=== PATIENT | male | born 1940 | race Caucasian/White ===

== ENCOUNTER 2016-09-01 18:43 | Inpatient (IN) | payer OTHER ==
--- NOTE | ~2016-09-01 | DS ---
Discharge Summary [facility] [address]. [address] NAME: SUSANNA LEON : 42 STATUS : DIS IN PAT#: [id number] AGE: 76 ADM/REG DATE : 09/02/16 MR#: [id number] REPORT SERV DATE: 09/05/16 DICTATED BY: SARKIS ZHAO DATE: 09/04/16 REPORT STATUS : Draft TRANSCRIBED BY: MODL DATE: 09/04/16 ADMISSION DATE: 09/02/2016 DISCHARGE DATE: 09/04/2016 DISCHARGE DIAGNOSES: 1. Nausea and vomiting related. 2. Pancreatic cancer with liver mets. 3. Hyponatremia. 4. Benign prostatic hyperplasia. 5. Increased liver function tests secondary to #2. IMAGING: CT of abdomen and pelvis, 09/01/2016, impression, obstructing appearing enhancing mass within the proximal biliary limb in the post Whipple procedure patient. The proximal biliary limb is dilated up to 4.9 cm diameter. Multifocal liver metastasis, left and right lobe liver largest 4.2 cm diameter near the liver dome, left lobe. Retroperitoneal adenopathy measuring up to 11 mm diameter suspicious for metastatic amanda disease. CONSULTATIONS: Surgery, Dr. Allen, 09/02/2016. COURSE DURING HOSPITAL STAY: Please refer to history and physical dictated by Dr. Vazquez on 09/01/2016 for complete admission details as well as consultation note by Dr. Allen. This patient is a 76-year-old male who presented to [facility] Emergency Room with complaints of nausea, ongoing. He does present with a history of pancreatic cancer under the care of Dr. Erik Larson, [facility]. The patient has undergone a Whipple in [place]. The patient presented with complaints of nausea and vomiting, uncontrolled at home. Imaging was obtained which is noted above. Surgical consult was obtained. The patient was evaluated by Dr. Allen on 09/02/2016. Per Dr. Allen and Dr. Larson, the patient was informed that the metastatic pancreatic cancer was incurable. No further surgical intervention or chemotherapy at this time. We discussed with the patient plan of care. The patient did agree that Hospice was the best choice. The patient chose [facility], was seen and evaluated. The patient will be admitted to hospice today on 09/04/2016. DISCHARGE MEDICATIONS: Per [facility]. This discharge took less than 30 minutes. ANASTASIA/LAURENT Sarkis Zhao NP / [id number] Discharge Summary [address] [address] NAME: SUSANNA LEON : 42 STATUS : DIS IN PAT#: [id number] AGE: 76 ADM/REG DATE : 09/02/16 MR#: [id number] REPORT SERV DATE: 09/05/16 DICTATED BY: SARKIS ZHAO DATE: 09/04/16 REPORT STATUS : Draft TRANSCRIBED BY: LAURENT DATE: 09/04/16 CC: MD Jarrett Bell M.D.
--- NOTE | ~2016-09-01 | HP ---
History And Physical [place] [address] [facility] [place]. [address] NAME: SUSANNA LEON : 42 STATUS : REG ER PAT#: [id number] AGE: 76 ADM/REG DATE : 09/01/16 MR#: [id number] REPORT SERV DATE: 09/01/16 DICTATED BY: JEFF HODGE DATE: 09/01/16 REPORT STATUS : Draft TRANSCRIBED BY: MODL DATE: 09/01/16 DATE OF ADMISSION: 09/01/2016 CHIEF COMPLAINT: Nausea. HISTORY OF PRESENT ILLNESS: The patient is a 76-year-old male. He has a past medical history significant for pancreatic cancer. The patient was diagnosed approximately a year ago here. He went to [place] for treatment and underwent a Whipple procedure. He normally follows up with Oncology and had a nine-month followup scan in July, I do not have access to that scan tonight, but apparently, it was noted that he had tumor recurrence and some lesions in his liver. Oncology recommendations at that time were for no further chemo. The patient states he was doing well until approximately two weeks ago, where he just felt like all his strength and energy had left him. Apparently, he got some outpatient IV fluids, which helped a little, but when he was still experiencing decreasing symptoms, he presented to the emergency department here this evening. He is having very minimal pain. He just has weakness, fatigue, decreased appetite, and just abruptly starting in the emergency department the nausea. On evaluation here, he was noted to have some mild hyponatremia at 128. There is some mild elevation in his AST of 61. He is being admitted for IV fluids, electrolyte correction, control of his pain and nausea, and further recommendations from Oncology and Surgery. PAST MEDICAL HISTORY: He states is otherwise remarkable for some urinary problems. PAST SURGICAL HISTORY: He has had the Whipple. He had a cystic neuroma removed in 1993. CURRENT MEDICATIONS: Prilosec 40, alfuzosin 10, and tramadol 50. ALLERGIES: OFLOXACIN. FAMILY HISTORY: Mother is living. Father from an [place]. SOCIAL HISTORY: Nondrinker, nonsmoker. REVIEW OF SYSTEMS: HEENT: Currently, no headache. CARDIOVASCULAR: No chest pain, palpitations. PULMONARY: No shortness of breath. GI: He has had some emesis, but now mostly dry heaves. : No complaints. NEUROMUSCULOSKELETAL: Complains only of generalized weakness. Otherwise, 10-point review of systems is negative. PHYSICAL EXAMINATION: VITAL SIGNS: BP 108/64, pulse 83, temperature 98, respirations 18, saturation 97%. GENERAL: He is awake, oriented, in no acute distress. He does appear nauseous. HEENT: Normocephalic, atraumatic. Sclerae nonicteric. History And Physical [address] [address] NAME: SUSANNA LEON : 42 STATUS : REG ER PAT#: [id number] AGE: 76 ADM/REG DATE : 09/01/16 MR#: [id number] REPORT SERV DATE: 09/01/16 DICTATED BY: JEFF HODGE DATE: 09/01/16 REPORT STATUS : Draft TRANSCRIBED BY: LAURENT DATE: 09/01/16 NECK: Supple. HEART: Regular rate and rhythm. LUNGS: Clear to auscultation without rhonchi, rales, or wheezes. ABDOMEN: He does have bowel sounds present. No distention. No tenderness. EXTREMITIES: No clubbing, cyanosis, or edema. LABORATORY DATA: Sodium 128, potassium 3.9, chloride 93, CO2 of 23, BUN and creatinine of 8 and 0.5 with glucose of 127, albumin is 2.7, calcium is 8.2, alkaline phosphatase 491, AST and ALT are 61 and 50. Lipase is 139, BNP is 94.5, troponin is less than 0.02, lactate is 0.7. White count 8.5, H and H 11 and 30.8, platelets 405. Urinalysis is pending. CT shows obstructing mass, proximal biliary limb of the Whipple, 4.9 cm dilatation, liver mets and retroperitoneal adenopathy. ASSESSMENT: Probable recurrent pancreatic cancer with mild electrolyte abnormalities and severe nausea and vomiting. PLAN: 1. The patient has been admitted. 2. IV fluids. 3. Antiemetics. 4. Reasonable pain control. 5. Hold off an NG tube at present. 6. Consultations by Surgery and Oncology in a.m. The patient to make treatment decisions based on those recommendations. FLORES/LAURENT Jeff Hodge M.D. / [id number] CC: Jarrett Arredondo M.D.
--- NOTE | ~2016-09-01 | CN ---
Consultation Report [address] [place]. [address] NAME: SUSANNA LEON : 42 STATUS : ADM IN PAT#: [id number] AGE: 76 ADM/REG DATE : 09/02/16 MR#: [id number] REPORT SERV DATE: 09/03/16 DICTATED BY: URSULA ALLEN III DATE: 09/02/16 REPORT STATUS : Draft TRANSCRIBED BY: MODL DATE: 09/02/16 CONSULTATION DATE OF CONSULTATION: 09/02/2016 REASON FOR CONSULT: 1. History of pancreatic cancer. 2. Hepatic mass, possible recurrent malignancy. 3. Recommendation regarding surgical management. HISTORY OF PRESENT ILLNESS: I am asked to see this 76-year-old male hospitalized for the above reasons. The patient has a history of pancreatic cancer. He underwent a Whipple procedure approximately one year ago at [facility]. His postop recovery was uneventful. Over the last several weeks, the patient complains of generalized weakness and fatigue. He has some anorexia. He has had no fever or chills. He recently had a followup CT scan which he reports showed hepatic metastasis. The patient has had no jaundice. It should be noted in addition to the above symptoms, the patient had nausea and vomiting, which occurred last night only. PAST MEDICAL HISTORY: 1. History of pancreatic cancer as above. The patient presented in July 2015 with obstructive jaundice. He had no evidence for metastatic disease at that time. 2. History of acute neuroma. SOCIAL HISTORY: The patient is and lives locally. FAMILY HISTORY: Positive for diabetes and cancer. MEDICATIONS: As per medication list. OBJECTIVE/PHYSICAL EXAMINATION: GENERAL: This is a male, appears chronically ill. He is alert and oriented x3. VITAL SIGNS: Blood pressure 149/76, temp 97.7, pulse 91. HEENT: Unremarkable. The patient is not jaundiced. LUNGS: Clear. CARDIAC EXAM: Normal. ABDOMEN: Soft. Nontender. No masses. EXTREMITIES: Unremarkable. LABORATORY DATA: CT scan of the abdomen and pelvis which I reviewed shows multiple hepatic masses consistent with metastatic disease. There were multifocal hypodense lesions in both Consultation Report [address] [place]. [address] NAME: SUSANNA LEON : 42 STATUS : ADM IN PAT#: [id number] AGE: 76 ADM/REG DATE : 09/02/16 MR#: [id number] REPORT SERV DATE: 09/03/16 DICTATED BY: URSULA ALLEN III DATE: 09/02/16 REPORT STATUS : Draft TRANSCRIBED BY: LAURENT DATE: 09/02/16 left and right lobes of the liver; all consistent with multifocal liver metastatic disease. There is noted to be enlarged retroperitoneal lymph nodes with some of these being up to 11 mm in diameter. There was an obstructing enhancing mass occluding the "proximal biliary limb" of the Whipple procedure. I believe this is the proximal portion of the patient's anastomotic limb which appears to be obstructed distal to the biliary anastomosis. Sodium is 128. Liver enzymes are remarkable for normal total bilirubin but elevated alkaline phosphatase of 491, and hematocrit 31. ASSESSMENT: This is a 76-year-old male with recurrent pancreatic cancer, with multiple hepatic metastasis and retroperitoneal adenopathy and what appears to be obstruction of the proximal portion of his jejunum just beyond the biliary anastomosis. The limb of this jejunum is dilated and most likely obstructed from retroperitoneal adenopathy. PLAN: I discussed this with the patient. I explained that he has what appears to be metastatic incurable pancreatic cancer. I see no indication for surgical intervention unless the patient develops symptoms related to the obstruction of the proximal jejunum such as nausea and vomiting. If this occurs then possible palliative surgery may be required. At this time, however, the patient's nausea and vomiting seemed to have been relieved, and we will continue to follow him with liquid diet as tolerated. Again, he clearly has a terminal process, and surgical intervention would not be indicated unless he develops symptoms related to obstruction of the proximal jejunal limb in which case we will need to consider palliative intervention. This has been discussed with the patient. I will follow him with you. RHRyan/LAURENT Ursula Allen III, M.D. / [id number] CC: MD Jarertt Knapp II, M.D.
[2016-09-01 15:24] LABS: BASOPHILS 0.1 %; BASOPHILS ABSOLUTE 0.01 10/3/uL (0.0-0.16); EOSINOPHILS 0.5 %; EOSINOPHILS ABSOLUTE 0.04 10/3/uL (0.0-0.53); HEMOGLOBIN 11.2 g/dL (13.6-17.8); IMMATURE GRANULOCYTES 0.2 %; IMMATURE GRANULOCYTES ABSOLUTE 0.02 10/3/uL (0.0-0.11); LYMPHOCYTES 16.6 %; LYMPHOCYTES ABSOLUTE 1.42 10/3/uL (0.67-4.30); MEAN CORPUS HGB CONC 35.2 g/dL (32.0-36.0); MEAN CORPUSCULAR HEMOGLOB 30.4 pg (26.0-34.0); MEAN CORPUSCULAR VOLUME 86.2 fL (80-100); MEAN PLATELET VOLUME 7.8 fL (9.2-13.0); MONOCYTES 5.6 %; MONOCYTES ABSOLUTE 0.48 10/3/uL (0.21-1.20); NEUTROPHILS ABSOLUTE 6.57 10/3/uL (2.02-8.40); PLATELET COUNT 405 10/3/uL (150-400); RBC DISTRIBUTION WIDTH 13.4 % (12.0-16.0); RED CELL COUNT 3.69 10/6/uL (4.7-6.1); WHITE BLOOD CELLS 8.5 10/3/uL (4.5-10.5)
[2016-09-01 15:26] LABS: HEMATOCRIT 31.8 % (40.0-51.0); MANUAL DIFF NO %
[2016-09-01 15:35] LABS: INTERNATIONAL NORMAL RATI 1.1 UNITS (-); PROTIME (NOT ORD) 14.5 SEC (12.0-14.5)
[2016-09-01 15:42] LABS: BUN (BLOOD UREA NITROGEN) 8 MG/DL (6-23); CALCIUM, SERUM 8.2 MG/DL (8.5-10.4); CHEST PAIN PROFILE TAT 0 Hrs 24 Mins; CHLORIDE, SERUM 93 MMOL/L (96-112); CO2 (CARBON DIOXIDE) 23 MMOL/L (24-34); CREATININE 0.53 MG/DL (0.70-1.30); GFR AFRICAN AMERICAN 120 ML/MIN (>=60); GFR NON AFRICAN AMERICAN 104 ML/MIN (>=60); GLUCOSE, SERUM 127 MG/DL (60-99); POTASSIUM, SERUM 3.9 MMOL/L (3.5-5.3); SODIUM, SERUM 128 MMOL/L (135-148); TROPONIN I <0.02 NG/ML (<0.05)
[~2016-09-01 18:43] MED LIST: *DENIES; IRON325 MG PO; MULTIPLE VIT PO; NASAL SPRAY OTC NAS; TEARS NATURA OPH; VITAMIN B PO; VITAMIN C OTC PO; ZINC OTC PO
[2016-09-01 19:28] LABS: LACTATE 0.7 MMOL/L (0.3-2.4)
[2016-09-01 19:29] LABS: TOTAL BILIRUBIN 0.5 MG/DL (0-1.2); TOTAL PROTEIN 6.6 G/DL (6.0-8.5)
[2016-09-01 19:30] LABS: ALBUMIN 2.7 G/DL (3.5-5.0); DIRECT BILIRUBIN 0.2 MG/DL (0.0-0.4); INDIRECT BILIRUBIN(NOT ORDER) 0.3 MG/DL (0.1-0.9)
[2016-09-01] MEDS ORDERED: UROXATRAL PO (23:11)
[2016-09-01] MEDS ORDERED: ULTRAM50 PO (23:12)
[2016-09-01] MEDS ORDERED: PRILOSEC40 MG PO (23:12)
[2016-09-01] MEDS ORDERED: VITC500 PO (23:13)
[2016-09-01] MEDS ORDERED: FERROUS SULF325 M1 PO (23:13)
[2016-09-01] MEDS ORDERED: VITAMIN B PO (23:13)
[2016-09-01] MEDS ORDERED: VITAMIN D31000 UNIT PO (23:14)
[2016-09-01] MEDS ORDERED: T PO (23:14)
[2016-09-01] MEDS ORDERED: TUMSROLL PO (23:16)
[2016-09-03 04:52] LABS: BASOPHILS 0 %; EOSINOPHILS 0 %; HEMATOCRIT 32.8 % (40.0-51.0); HEMOGLOBIN 11.4 g/dL (13.6-17.8); IMMATURE GRANULOCYTES 0.3 %; IMMATURE GRANULOCYTES ABSOLUTE 0.04 10/3/uL (0.0-0.11); LYMPHOCYTES 7.7 %; MANUAL DIFF NO %; MEAN CORPUS HGB CONC 34.8 g/dL (32.0-36.0); MEAN CORPUSCULAR HEMOGLOB 29.9 pg (26.0-34.0); MEAN CORPUSCULAR VOLUME 86.1 fL (80-100); MEAN PLATELET VOLUME 8.3 fL (9.2-13.0); MONOCYTES 4.7 %; MONOCYTES ABSOLUTE 0.55 10/3/uL (0.21-1.20); NEUTROPHILS 87.3 %; NEUTROPHILS ABSOLUTE 10.21 10/3/uL (2.02-8.40); PLATELET COUNT 499 10/3/uL (150-400); RBC DISTRIBUTION WIDTH 13.6 % (12.0-16.0); RED CELL COUNT 3.81 10/6/uL (4.7-6.1); WHITE BLOOD CELLS 11.7 10/3/uL (4.5-10.5)
[2016-09-03 05:05] LABS: BUN (BLOOD UREA NITROGEN) 6 MG/DL (6-23); CALCIUM, SERUM 8.1 MG/DL (8.5-10.4); CHLORIDE, SERUM 97 MMOL/L (96-112); CO2 (CARBON DIOXIDE) 20 MMOL/L (24-34); CREATININE 0.45 MG/DL (0.70-1.30); GFR AFRICAN AMERICAN 128 ML/MIN (>=60); GFR NON AFRICAN AMERICAN 111 ML/MIN (>=60); GLUCOSE, SERUM 102 MG/DL (60-99); SODIUM, SERUM 129 MMOL/L (135-148)
[2016-09-04] MEDS ORDERED: SENTAB PO (11:58)
== END 2016-09-04 12:35 | disposition hospice, home (50) | DRG 436 ==
LOC: ER 18:43 → 4EA 09-02 00:27
PROVIDERS: Emergency Medicine; Nurse Practitioner Family
DX: C25.9 Malignant neoplasm of pancreas, unspecified (principal); C78.7 Secondary malignant neoplasm of liver and intrahepatic bile duct; E86.0 Dehydration; E87.1 Hypo-osmolality and hyponatremia; N40.0 Benign prostatic hyperplasia without lower urinary tract symptoms; R59.1 Generalized enlarged lymph nodes; Z66 Do not resuscitate
CPT/HCPCS: 74177; 80048; 80076; 81001; 83605; 83690; 83735; 83880; 84484; 85025; 85610; 85730; 93005; 96374; 96375; 99285; A9270-GY; J2405; J2550; Q9967